=== PATIENT | female | born 1965 | race Two or more races ===

== ENCOUNTER 2024-07-01 12:07 | Emergency (ER) | payer OTHER ==
[~2024-07-01] VITALS: Ht 160 cm; Wt 47.6 kg
[2024-07-01] MEDS ORDERED: ACETAMINOPHEN 325 MG TABLET PO ONE (13:30)
[2024-07-01 14:22] LABS: HEMATOCRIT 34.3 % (36.0-45.00); MEAN CELL VOLUME 96.8 fL (80.00-100.00); MEAN CORPUSCULAR HEMOGLOBIN 33.8 pg (27.00-32.0); PLATELET COUNT 254 K/uL (150-450); RED BLOOD COUNT 3.55 M/uL (4.00-6.00); RED CELL DISTRIBUTION WIDTH 13.5 % (11.5-14.5)
== END 2024-07-01 15:17 | disposition home or self-care (01) ==
LOC: ER 12:08
PROVIDERS: General Practice
DX: R53.81 Other malaise (principal); A90 Dengue fever [classical dengue]; Z20.822 Contact with and (suspected) exposure to COVID-19; Z88.2 Allergy status to sulfonamides